=== PATIENT | female | born 1980 | race Caucasian/White ===

== ENCOUNTER 2016-08-08 13:47 | Emergency (ER) | payer BC ==
[~2016-08-08] VITALS: Ht 167.6 cm; Wt 81.6 kg
[2016-08-08 13:50] VITALS: BP 127/78
[2016-08-08 14:37] LABS: Basophils # (auto) 0 uL; Basophils % (auto) 0.6 % (0.0-2.0); Eosinophils # (auto) 0.2 uL; Eosinophils % (auto) 2.7 % (0.0-7.0); Hematocrit 43.3 % (36.0-46.0); Hemoglobin 14.6 g/dL (12.2-16.2); Lymphocytes # (auto) 2.7 uL; Lymphocytes % (auto) 38.7 % (10.0-50.0); Mean Corpuscular Hemoglobin 31.7 pg (28.0-32.0); Mean Corpuscular Hgb Conc. 33.7 g/dL (32.0-36.0); Mean Platelet Volume 11.4 fL (7.4-10.4); Monocytes # (auto) 0.5 uL; Monocytes % (auto) 6.4 % (0.0-12.0); Neutrophils # (auto) 3.6 uL; Neutrophils % (auto) 51.6 % (37.0-80.0); Platelet Count (auto) 197 10^3/uL (140-450); Red Cell Distribution Width 13.4 % (11.6-16.0)
[2016-08-08 14:38] LABS: Urine Bilirubin Negative (Negative); Urine Blood Negative /uL (Negative); Urine Color Yellow (Yellow); Urine Glucose Normal (Normal); Urine Ketone Negative (Negative); Urine Mucus FEW (None Seen); Urine Nitrite Negative (Negative); Urine RBC 1 /hpf (0 - 4); Urine Squamous Epithelial Cell FEW /hpf (<5); Urine Urobilinogen Normal (Negative); Urine pH 6.5 (5.0-8.0)
[2016-08-08 15:02] LABS: Albumin 3.8 g/dL (3.4-5.0); BUN/Creatinine Ratio 18.8; Bilirubin, Total 0.5 mg/dL (0.2-1.0); Calcium 8.5 mg/dL (8.5-10.1); Potassium 3.6 mmol/L (3.5-5.1); Total Protein 7.5 g/dL (6.4-8.2)
== END 2016-08-08 20:46 | disposition home or self-care (01) ==
LOC: ER 13:47
DX: S33.5XXA Sprain of ligaments of lumbar spine, initial encounter (principal); M79.642 Pain in left hand; G89.29 Other chronic pain; M54.5 Low back pain; M79.1 Myalgia; V43.52XA Car driver injured in collision with other type car in traffic accident, initial encounter; Y93.89 Activity, other specified; Y92.89 Other specified places as the place of occurrence of the external cause; Y99.8 Other external cause status; Z88.1 Allergy status to other antibiotic agents
CPT/HCPCS: 36415; 72040; 72070; 72100; 73130; 80053; 81001; 85025; 86141

== ENCOUNTER → 2016-09-29 | Outpatient (CLI) | payer BC ==
[2016-09-29 09:45] LABS: Urine RBC None Seen /hpf (0 - 4)
[2016-09-29 09:53] LABS: Urine Bilirubin Negative (Negative); Urine Blood Negative /uL (Negative); Urine Color Yellow (Yellow); Urine Glucose Normal (Normal); Urine Ketone Negative (Negative); Urine Nitrite Negative (Negative); Urine Squamous Epithelial Cell FEW /hpf (<5); Urine Urobilinogen Normal (Negative); Urine pH 7.5 (5.0-8.0)
[2016-09-29 09:55] LABS: Basophils # (auto) 0 uL; Basophils % (auto) 0.6 % (0.0-2.0); CONDITION Y; Eosinophils # (auto) 0.1 uL; Hematocrit 44.4 % (36.0-46.0); Hemoglobin 15.1 g/dL (12.2-16.2); Lymphocytes # (auto) 1.9 uL; Lymphocytes % (auto) 30.8 % (10.0-50.0); Mean Corpuscular Hemoglobin 32.3 pg (28.0-32.0); Mean Corpuscular Hgb Conc. 34.1 g/dL (32.0-36.0); Mean Corpuscular Volume 94.9 fL (80.0-100.0); Mean Platelet Volume 10.8 fL (7.4-10.4); Monocytes # (auto) 0.4 uL; Monocytes % (auto) 6.4 % (0.0-12.0); Neutrophils # (auto) 3.8 uL; Neutrophils % (auto) 60.2 % (37.0-80.0); Platelet Count (auto) 171 10^3/uL (140-450); Red Cell Distribution Width 13.9 % (11.6-16.0); White Blood Cell 6.3 10^3/uL (4.4-10.8)
[2016-09-29 10:23] LABS: Albumin 3.8 g/dL (3.4-5.0); BUN/Creatinine Ratio 14.5; Bilirubin, Total 0.6 mg/dL (0.2-1.0); Calcium 8.6 mg/dL (8.5-10.1); Potassium 3.8 mmol/L (3.5-5.1); Total Protein 7.6 g/dL (6.4-8.2)
[2016-09-30 04:08] LABS: Thyroxine (T4) 6.5 ug/dL (4.5-12.0)
== END | disposition home or self-care (01) ==
LOC: LAB 09:16
PROVIDERS: ATTEND Family Medicine
DX: Z00.00 Encounter for general adult medical examination without abnormal findings (principal)
CPT/HCPCS: 36415; 80053; 80061; 81001; 82306; 84436; 84443; 84479; 85025

== ENCOUNTER → 2018-05-24 | Outpatient (CLI) | payer BC | END | disposition home or self-care (01) | LOC: XYW 16:58 | PROVIDERS: ATTEND Emergency Medicine | DX: G93.0 Cerebral cysts (principal) | CPT/HCPCS: 70450 ==

== ENCOUNTER 2018-09-05 13:39 | Emergency (ER) | payer BC ==
[~2018-09-05] VITALS: Ht 165.1 cm; Wt 80.7 kg
[2018-09-05 14:34] LABS: Basophils # (auto) 0.1 uL; Basophils % (auto) 1.4 % (0.0-2.0); Eosinophils # (auto) 0.3 uL; Eosinophils % (auto) 5.3 % (0.0-7.0); Hematocrit 43.9 % (36.0-46.0); Lymphocytes # (auto) 1.9 uL; Mean Corpuscular Hgb Conc. 34.1 g/dL (32.0-36.0); Mean Corpuscular Volume 94.1 fL (80.0-100.0); Monocytes # (auto) 0.4 uL; Monocytes % (auto) 7.6 % (0.0-12.0); Neutrophils # (auto) 2.2 uL; Neutrophils % (auto) 45.7 % (37.0-80.0); Nucleated Red Blood Cells % 0.1 %; Platelet Count (auto) 143 10^3/uL (140-450); Red Blood Cells 4.67 10^6/uL (4.0-5.20); Red Cell Distribution Width 13.2 % (11.8-14.3); White Blood Cell 4.9 10^3/uL (4.4-10.8)
[2018-09-05 14:48] LABS: Albumin 3.8 g/dL (3.4-5.0); Anion Gap 8 (5-15); Blood Urea Nitrogen 15 mg/dL (7-18); Calcium 8.5 mg/dL (8.5-10.1); Carbon Dioxide 23 mmol/L (21-32); Chloride 113 mmol/L (98-107); Potassium 3.8 mmol/L (3.5-5.1); Sodium 144 mmol/L (136-145)
[2018-09-05 14:51] LABS: Alanine Aminotransferase 29 U/L (13-56); Aspartate Aminotransferase 16 U/L (15-37); BUN/Creatinine Ratio 17.9; GFR African American 99 mL/min; GFR Non-African American 82 mL/min; Glucose 95 mg/dL (74-106)
[2018-09-05 14:53] LABS: INR 1.04 (0.9-1.15); Partial Thromboplastin Time 26.4 sec (23.64-32.05)
[2018-09-05 14:54] LABS: Alkaline Phosphatase 29 U/L (45-117); Bilirubin, Total 0.5 mg/dL (0.2-1.0); Total Protein 7.5 g/dL (6.4-8.2)
[2018-09-05] MEDS ORDERED: IOHEXOL 350 MG/ML 100ML IJ ONE (15:09)
[2018-09-05 18:12] VITALS: BP 116/69
== END 2018-09-05 18:41 | disposition home or self-care (01) ==
LOC: ER 13:39
DX: R07.89 Other chest pain (principal); F41.9 Anxiety disorder, unspecified; R10.9 Unspecified abdominal pain; Z88.2 Allergy status to sulfonamides
CPT/HCPCS: 36415; 71275; 76705; 80053; 84443; 84484; 85025; 85379; 85610; 85730; 93005; 94761; 99284; Q9967

== ENCOUNTER → 2019-07-02 | Outpatient (CLI) | payer BC | END | disposition home or self-care (01) | LOC: US 13:09 | DX: R60.9 Edema, unspecified (principal) | CPT/HCPCS: 93970 ==

== ENCOUNTER → 2019-07-23 | Outpatient (CLI) | payer BC ==
[2019-07-23 11:24] LABS: Basophils # (auto) 0 10 ^3/uL (0-0.2); Basophils % (auto) 0.6 % (0.0-2.0); Eosinophils # (auto) 0 10 ^3/uL (0-0.8); Eosinophils % (auto) 0.8 % (0.0-7.0); Hematocrit 42.7 % (36.0-46.0); Hemoglobin 14.6 g/dL (12.2-16.2); Lymphocytes # (auto) 1.3 10 ^3/uL (0.4-5.4); Lymphocytes % (auto) 27.8 % (10.0-50.0); Mean Corpuscular Hemoglobin 32.4 pg (28.0-32.0); Mean Corpuscular Hgb Conc. 34.2 g/dL (32.0-36.0); Mean Corpuscular Volume 94.7 fL (80.0-100.0); Monocytes # (auto) 0.3 10 ^3/uL (0-1.3); Monocytes % (auto) 7.5 % (0.0-12.0); Neutrophils # (auto) 2.9 10 ^3/uL (1.6-8.6); Neutrophils % (auto) 63.3 % (37.0-80.0); Nucleated Red Blood Cells % 0.1 %; Platelet Count (auto) 128 10^3/uL (140-450); Red Blood Cells 4.51 10^6/uL (4.0-5.20); Red Cell Distribution Width 13.4 % (11.8-14.3); White Blood Cell 4.6 10^3/uL (4.4-10.8)
[2019-07-23 12:02] LABS: Albumin 4.3 g/dL (3.4-5.0); Calcium 8.9 mg/dL (8.5-10.1); Potassium 3.9 mmol/L (3.5-5.1)
[2019-07-23 12:06] LABS: BUN/Creatinine Ratio 8.5; Bilirubin, Total 0.7 mg/dL (0.2-1.0); CRP High Sensitivity 0.02 mg/dL (< 0.3); Total Protein 8.1 g/dL (6.4-8.2)
[2019-07-23 14:16] LABS: Free T4 (Free Thyroxine) 1.03 ng/dL (0.89-1.76)
[2019-07-23 15:07] LABS: Folate (Folic Acid) 22.25 ng/mL (5.38-24)
== END | disposition home or self-care (01) ==
LOC: LAB 11:05
PROVIDERS: ATTEND Internal Medicine
DX: R52 Pain, unspecified (principal)
CPT/HCPCS: 36415; 80053; 82306; 82607; 82746; 84439; 84443; 85025; 85652; 86141; 86200; 86431; 86592

== ENCOUNTER → 2020-01-16 | Outpatient (CLI) | payer OTHER | END | disposition home or self-care (01) | LOC: LAB 15:45 | PROVIDERS: ATTEND Nurse Practitioner Family | DX: U07.1 COVID-19 (principal) | CPT/HCPCS: C9803; U0003 ==

== ENCOUNTER → 2020-04-16 | Outpatient (CLI) | payer BC | END | disposition home or self-care (01) | LOC: XYW 11:01 | PROVIDERS: ATTEND Internal Medicine | DX: G93.0 Cerebral cysts (principal); D64.9 Anemia, unspecified; R94.09 Abnormal results of other function studies of central nervous system; M50.222 Other cervical disc displacement at C5-C6 level; M50.223 Other cervical disc displacement at C6-C7 level; M47.812 Spondylosis without myelopathy or radiculopathy, cervical region; M48.02 Spinal stenosis, cervical region; R42 Dizziness and giddiness | CPT/HCPCS: 70551; 72141 ==

== ENCOUNTER → 2020-04-22 | Outpatient (CLI) | payer BC ==
[2020-04-22 12:33] LABS: Basophils % (manual) 0 (0.0-2.0); Blast Cells 0; Metamyelocytes % 0; Myelocytes % 0; Promyelocytes % 0
[2020-04-22 13:12] LABS: Hematocrit 43.6 % (36.0-46.0); Mean Corpuscular Hemoglobin 32.6 pg (28.0-32.0); Mean Corpuscular Hgb Conc. 34.4 g/dL (32.0-36.0); Mean Corpuscular Volume 94.8 fL (80.0-100.0); Platelet Count (auto) 158 10^3/uL (140-450); Red Cell Distribution Width 13.5 % (11.8-14.3); White Blood Cell 5.2 10^3/uL (4.4-10.8)
[2020-04-22 13:17] LABS: INR 1.07 (0.9-1.15); Partial Thromboplastin Time 26.5 sec (23.0-31.2)
[2020-04-22 13:19] LABS: Albumin 4.1 g/dL (3.4-5.0); Calcium 8.8 mg/dL (8.5-10.1); Potassium 3.7 mmol/L (3.5-5.1)
[2020-04-22 13:24] LABS: BUN/Creatinine Ratio 9.9; Bilirubin, Direct 0.2 mg/dL (0-0.2); Bilirubin, Total 0.8 mg/dL (0.2-1.0); Total Protein 7.8 g/dL (6.4-8.2)
[2020-04-22 14:56] LABS: Basophils % (manual) 0 (0.0-2.0); Blast Cells 0; Metamyelocytes % 0; Myelocytes % 0; Promyelocytes % 0
[2020-04-22 14:58] LABS: Band Neutrophils % (manual) 1; Eosinophils % (manual) 3 (0-7); Lymphocytes % (manual) 28 (10.0-50.0); Monocytes % (manual) 4 (0-12); Reactive Lymphocytes 1
[2020-04-22 15:05] LABS: Band Neutrophils % (manual) 1; Eosinophils % (manual) 3 (0-7); Lymphocytes % (manual) 28 (10.0-50.0); Monocytes % (manual) 4 (0-12); Reactive Lymphocytes 1
[2020-04-22 15:06] LABS: Platelet Count (auto) 160 10^3/uL (140-450)
== END | disposition home or self-care (01) ==
LOC: LAB 11:56
PROVIDERS: ATTEND Internal Medicine Rheumatology
DX: M32.10 Systemic lupus erythematosus, organ or system involvement unspecified (principal); D64.9 Anemia, unspecified
CPT/HCPCS: 36415; 80053; 82248; 82607; 85007; 85025; 85027; 85610; 85730; 86160; 86225; 86235

== ENCOUNTER → 2020-05-05 | Outpatient (CLI) | payer BC ==
[2020-05-07 12:28] LABS: Basophils # (auto) 0.1 10 ^3/uL (0-0.2); Eosinophils # (auto) 0.1 10 ^3/uL (0-0.8); Mean Corpuscular Hemoglobin 33.6 pg (28.0-32.0); Monocytes # (auto) 0.5 10 ^3/uL (0-1.3); Nucleated Red Blood Cells % 0.1 %
[2020-05-07 12:38] LABS: Basophils % (auto) 1.1 % (0.0-2.0); Eosinophils % (auto) 1.5 % (0.0-7.0); Hemoglobin 14.8 g/dL (12.2-16.2); Lymphocytes # (auto) 1.9 10 ^3/uL (0.4-5.4); Lymphocytes % (auto) 24.5 % (10.0-50.0); Mean Corpuscular Hgb Conc. 36.1 g/dL (32.0-36.0); Mean Corpuscular Volume 92.9 fL (80.0-100.0); Monocytes % (auto) 6.4 % (0.0-12.0); Neutrophils # (auto) 5.1 10 ^3/uL (1.6-8.6); Neutrophils % (auto) 66.5 % (37.0-80.0); Platelet Count (auto) 206 10^3/uL (140-450); Red Blood Cells 4.41 10^6/uL (4.0-5.20); Red Cell Distribution Width 13.1 % (11.8-14.3); White Blood Cell 7.7 10^3/uL (4.4-10.8)
[2020-05-07 12:45] LABS: INR 1.07 (0.9-1.15); Partial Thromboplastin Time 28.2 sec (23.0-31.2)
[2020-05-07 13:35] LABS: Albumin 3.9 g/dL (3.4-5.0); Bilirubin, Total 0.5 mg/dL (0.2-1.0); Calcium 8.9 mg/dL (8.5-10.1); Total Protein 8.1 g/dL (6.4-8.2)
[2020-05-07 16:08] LABS: Carcinoembryonic Antigen < 0.50 ng/mL (<5.0 OR =); Leuteinizing Hormone 1.3 IU/L
== END | disposition home or self-care (01) ==
LOC: LAB 09:10
PROVIDERS: ATTEND Internal Medicine Gastroenterology
DX: R10.9 Unspecified abdominal pain (principal)
CPT/HCPCS: 36415; 80053; 82105; 82378; 82565; 83002; 83615; 84144; 85025; 85610; 85730; 86300; 86301; 86304

== ENCOUNTER → 2020-05-06 | Outpatient (CLI) | payer BC ==
[~2020-05-06] MED LIST: GADOTERATE MEG 10 MMOL/20ml INJ (0.5MMOL/ml) IV ONE; OMNIPAQUE ORAL SOLN 500ml 12mg/ml PO ONE
== END | disposition home or self-care (01) ==
LOC: CT 08:11
PROVIDERS: ATTEND Internal Medicine Gastroenterology
DX: K76.89 Other specified diseases of liver (principal); N94.89 Other specified conditions associated with female genital organs and menstrual cycle; R10.9 Unspecified abdominal pain
CPT/HCPCS: 74177; Q9967